=== PATIENT | male | born 1970 | race Caucasian/White ===

== ENCOUNTER → 2021-01-04 | Day surgery (SDC) | payer MEDICARE, OTHER ==
[~2021-01-04] VITALS: Ht 175.3 cm; Wt 104.8 kg
[~2021-01-04] MED LIST: AMOXICILLIN500 MG PO; CLARITIN10 MG PO; FLONASE ALLER15.8 ML; GERI-LANTA LIQ355 M1 PO; MOTRIN600 MG PO; PEPCID AC20 MG PO; PRINIVIL20 MG PO; VITAMIN B-121000 MC1 PO
[2021-01-04 08:54] LABS: BASOPHIL 0.6 % (0-2); EOSINOPHIL 2.4 % (0-5); HCT 45.1 % (42.0-52.0); HGB 15.5 g/dl (13.2-18.0); MCH 28.3 pg (25.0-31.0); MCHC 34.4 g/dL (32.0-36.0); MCV 82.4 fL (78.0-100.0); MPV 10.4 fL (6.0-9.5); NEUTROPHIL 65.2 % (41-80); NRBC 0; PLT 300 K/uL (150-400); RBC 5.47 M/uL (4.70-6.00); RDW 13.2 % (11.5-14.0); WBC 9.7 K/uL (4.0-10.5)
[2021-01-04 11:15] LABS: BUN/CREAT RATIO (CALC) 12.8 RATIO; CREATININE 0.94 mg/dL (0.67-1.17); POTASSIUM 3.8 mmol/L (3.5-5.1)
== END | disposition home or self-care (01) ==
LOC: FAS 08:11
PROVIDERS: Anesthesiology; Oral & Maxillofacial Surgery
DX: K02.9 Dental caries, unspecified (principal); K04.7 Periapical abscess without sinus; F63.9 Impulse disorder, unspecified; K21.9 Gastro-esophageal reflux disease without esophagitis; I10 Essential (primary) hypertension; E78.5 Hyperlipidemia, unspecified; Z20.822 Contact with and (suspected) exposure to COVID-19
CPT/HCPCS: D7140; D7210; 36415; 71045; 80048; 85025; 93005; J1100; J2250; J2405; J2704; J2710; J3010; J7120